=== PATIENT | female | born 1990 | race Caucasian/White ===

== ENCOUNTER 2021-12-21 10:12 | Outpatient (CLI) | payer BC, SELFPAY ==
--- NOTE | ~2021-12-21 | US_ITS ---
EXAMINATION: US pelvic complete w TV EXAM DATE: 12/21/2021 10:49 INDICATION: Right-sided cyst felt by TECHNIQUE: Pelvic transabdominal and transvaginal sonogram was performed. There are multiple graysca le and Doppler images available for interpretation. Comparison is made to prior examination from 11/29. FINDINGS: Uterus measures 10.6 x 6.7 x 4.6 cm, and is morphologically normal. Endometrial stripe me asures 11 mm, within normal limits. There is no free pelvic fluid. Right adnexa: The ovary measures 3.5 x 2.8 x 1.4 cm and is morphologically normal. Ovarian vascular f low confirmed. Left adnexa: The ovary measures 3.0 x 2.7 x 3.0 cm and is cyst or cystic region with a septation rafat uring 2.5 x 2.8 x 2.3 cm. Ovarian vascular flow confirmed. IMPRESSION: Small mildly complex left ovarian cyst, probably physiologic or hemorrhagic. Unremarkable right ovary. Reviewed, dictated and finalized at location B. LER HELPER IMPRESSION: Small mildly complex left ovarian cyst, probably physiologic or hem orrhagic. Unremarkable right ovary.
== END 2021-12-21 10:13 | disposition home or self-care (01) ==
LOC: ANHIMG 10:16
PROVIDERS: PCP Physician Assistant; Visit Provider Obstetrics & Gynecology
DX: N83.292 Other ovarian cyst, left side (principal)
CPT/HCPCS: 76830; 76856

== ENCOUNTER → 2021-12-25 01:55 | Outpatient (CLI) | payer BC, SELFPAY ==
[2021-12-25 11:11] LABS: SARS-CoV-2 RNA PCR Negative
== END ==
PROVIDERS: PCP Physician Assistant; Visit Provider Obstetrics & Gynecology
DX: Z01.812 Encounter for preprocedural laboratory examination (principal); Z20.822 Contact with and (suspected) exposure to COVID-19
CPT/HCPCS: C9803; U0003; U0005

== ENCOUNTER 2021-12-25 08:55 | Outpatient (CLI) | payer BC, SELFPAY | END 2021-12-25 08:56 | disposition home or self-care (01) | LOC: ANHSURGERY 08:58 | PROVIDERS: PCP Physician Assistant; Visit Provider Obstetrics & Gynecology | DX: Z01.812 Encounter for preprocedural laboratory examination (principal); N83.209 Unspecified ovarian cyst, unspecified side | CPT/HCPCS: 36415; 86850; 86900; 86901 ==

== ENCOUNTER 2021-12-28 02:30 | Day surgery (SDC) | payer BC, SELFPAY ==
[2021-12-25 08:23] VITALS: BMI 22.2
--- NOTE | 2021-12-25 08:33 | PC.NURSE ---
Report to the Outpatient Waiting Room, entrance under the green pavilion located off [facility], at time 6:15 on date 12/28/21. OR Time: 8:15. - You and your visitor will be asked a series of questions to screen for COVID 19 for your protection. - A mask is required within the hospital. One visitor will be allowed to accompany the patient into the hospital. Patients visitor will be instructed to remain with patient at all times or leave the building. We will allow the visitor to come back to the postoperative area when patient is ready. Preoperative COVID Testing Requirements: COVID TEST 12/25 AT 9:00 No COVID Test needed if: (proof is required; if not received patient will have Rapid Test prior to entry) - Patient has received COVID Vaccine at least 14 days prior to procedure date or - Patient has positive COVID test result within last 90 days of surgery date. COVID Test needed if above criteria is not met If not COVID vaccinated a COVID test must be conducted within 72 hours of surgery and patient is asked to isolate self from time of testing until procedure. You will go to the [facility] for your COVID testing. The [facility] site is located at the corner of [address] [facility]. You will only be called if COVID results are positive and your surgeon may reschedule your elective surgery date. Patients may have clear liquids (water, carbonated beverages, clear teas, apple juice) until 3 hours prior to surgery (5:15) with a maximum of 20 ounces. - No food from midnight until time of surgery Take the following medications with a SIP of water the morning of surgery: INHALER (IF NEEDED) Medications to discontinue per physician: N/A Date to take last dose: N/A Please no make-up, nail cuban, hairspray, perfume, deodorant, or body powder the day of surgery. No jewelry (including any body piercings) or valuables the day of surgery, leave them at home. Please take a shower or bath the night before, or the morning of, surgery with an antibacterial soap. Wear comfortable, loose fitting clothing. - Jewelry must be removed prior to entering the operating room. Rings and piercings that are not removed may be cut off. - The hospital will not accept responsibility for valuables. - Please leave all valuables, including medications, at home the day of surgery. If you are going home after surgery, a licensed sprinkling truck driver must drive you home. - NO public transportation without another adult. - We recommend that an adult stay with you for 24 hours following discharge. - We also recommend that you do not drive, make important decision, drink alcoholic beverages, or take any drugs that were not prescribed by your health care provider for at least 24 hours after your discharge time. Follow any additional instructions given to you from your surgeon. Telephone instructions given to KWABENA WILDER and asked if any additional questions and then verbalized understanding. Patient advised to call surgeon office or pre surgery nurse liaison [phone] if any additional questions.
--- NOTE | 2021-12-27 07:45 | P.HP_ITS ---
H&P: HPI History of Present Illness Date/Time: 0 31-year-old admitted for laparoscopy left cystectomy and pos sible left salpingo-oophorectomy. Patient has pain discomfort and dyspareunia scan ultrasound shows a left-sided ovarian cyst she has a very benign appearance. She has a history of endometriosis. Risks and benefits reviewed in great detail. She received the ACOG handout entitled laparoscopy. She had all questions answered and asked to proceed12/27/21 07:45 Chief Complaint: pelvic pain and left ovarian cyst Review of Systems Review of Systems: All systems reviewed & are unremarkable except as noted in HPI and below PMFSH Past Medical History Medical History Asthma Endometriosis Surgical History Surgical History H/O hernia repair History of cholecystectomy Family History Family History Father Hypertension Mother Hypertension Family history of autoimmune disorder Other Family history of allergic disorder Social History Social History Smoking status: Never smoker Alcohol intake: current Alcohol use details: COUPLE/MONTH Substance use: never Substance use type: does not use Spiritual care concerns: No Meds Home Medications and Allergies Home Medications Medication Instructions Recorded Confirmed Type albuterol sulfate 90 mcg/actuation 1 puff INHALATION Q4H PRN 11/17/19 12/25/21 History aerosol inhaler sertraline 50 mg PO HS 12/25/21 12/25/21 History Allergies Allergy/AdvReac Type Severity Reaction Status Date / Time aspirin Allergy Unknown Other Verified 12/25/21 08:22 Penicillins Allergy Unknown Hives Verified 12/25/21 08:22 Exam Const: General: no acute distress Eyes: General: appearance normal, both eyes and all related structures Neck: Neck: supple and no JVD Thyroid: thyroid normal Resp: Effort & Inspection: normal respiratory effort Auscultation: clear to auscultation bilaterally Cardio: Rate: regular rate Rhythm: regular rhythm GI: Inspection: non-distended GI Palp: Yes Soft to palpation, No Tenderness to palpation present (GI) and No Guarding due to palpation present (GI) Auscultation: normal bowel sounds Skin: General skin exam: no rashes or lesions noted Extrem: General: normal to inspection and no edema Psych: Mental Status: mental status grossly normal Affect: normal affect Assessment and Plan Additional Plan impression: Pelvic pain and left ovarian cyst Plan: Laparoscopy with left cystectomy possible left salpingo-oophorectomy
--- NOTE | 2021-12-27 12:58 | P.PNAN_ITS ---
Anes - Initial Pre Proc Eval Procedure: Operation Date: 12/28/21 08:15 Proposed Procedures p Diagnostic Laparoscopy, Possible Left Ovarian Cystectomy - Teodoro Lamar MD Date/Time: 12/27/21 12:58 Surgeon: Teodoro Lamar MD Pre Op Diagnosis: pain left ovarian cyst Patient Data Age: 31 Gender: F Height: 1.7 m Weight: 64.41 kg Allergies Allergy/AdvReac Type Severity Reaction Status Date / Time aspirin Allergy Unknown Other Verified 12/28/21 06:47 Penicillins Allergy Unknown Hives Verified 12/28/21 06:47 Home Medications Medication Instructions Recorded Confirmed Type albuterol sulfate 90 mcg/actuation 1 puff INHALATION Q4H PRN 11/17/19 12/28/21 History aerosol inhaler sertraline 50 mg PO HS 12/25/21 12/28/21 History hydrocodone-acetaminophen 1 tablet PO Q4H PRN #30 tablet 12/28/21 Rx Patient hx anesthesia problems: none Family hx anesthesia problems: none Results Review: All pre-operative results and documents have been reviewed as part of the pre-operative evaluation. [facility] Past Medical History Medical History Asthma Endometriosis Surgical History Surgical History H/O hernia repair History of cholecystectomy Family History Family History Father Hypertension Mother Hypertension Family history of autoimmune disorder Other Family history of allergic disorder Social History Social History Smoking status: Never smoker Alcohol intake: current Alcohol use details: COUPLE/MONTH Substance use: never Substance use type: does not use Living arrangements: with family Spiritual care concerns: No Anes - Eval Final PreProcedure Day of Procedure 12/27/21 12:58 Patient weight: normal Heart: regular rate and rhythm Lungs: clear to auscultation and normal air movement Airway: Mallampati scale class II Neurological: alert and oriented Last oral intake: >/= 8 hours ASA classification: II Emergent: no Anesthetic plan: proceed Anesthesia type and monitoring: general ETT and standard monitoring Results Review: All pre-operative results and documents have been reviewed as part of the pre-operative evaluation. Informed Consent: The patient's anesthetic plan and its attendant risks and benefits were discussed with the patient/family/POA. Questions were solicited and answers provided to the satisfaction of the patient/family/POA.
[2021-12-28] VITALS (7 sets, daily range): BP systolic 98–123; BP diastolic 44–109; PULSE 65–85; RESP 13–16; TEMP 36.3–36.8; O2SAT 100
--- NOTE | 2021-12-28 06:55 | WPDHPUPDATE1 ---
History and Physical Update Update Date/Time: 12/28/21 06:55 History and Physical has been reviewed, including an updated exam of the patient. There are NO changes in the patient's condition. Risks, benefits, and alternatives have been discussed and questions answered. Patient agrees to proceed with procedure.
[2021-12-28] MEDS: ACETAMINOPHEN 500 MG TABLET 1000 MG PO (07:22)
[2021-12-28] MEDS: SCOPOLAMINE 1.5 MG PATCH TRANSDERM (07:23)
[2021-12-28] MEDS: LACTATED RINGERS 1,000 ML 30 ML IV CONT (07:32)
[2021-12-28] MEDS: KETOROLAC 15 MG/ML VIAL (*BKC) IV PUSH (07:34)
--- NOTE | 2021-12-28 08:43 | W.PM.PROC2 ---
Procedure Note - Detailed Date of Procedure 12/28/21 Pre-op Diagnosis pain left ovarian cyst Post-op Diagnosis Other (Endometriosis) Procedure Performed laparoscopic destruction of left ovarian cyst. Laparoscopic destruction of endometriosis Surgeon Teodoro Lamar MD Anesthesia General Indications since 31-year-old female with pelvic pain and left ovarian cyst Findings simple appearing benign left ovarian cyst. Normal-appearing uterus. Blistered endometriosis along the right uterosacral ligament. The appendix was hidden and some scar tissue but it was freed easily with blunt dissection. The gallbladder appeared to be surgically absent Description of Procedure the patient was prepped draped in the normal sterile fashion placed in the dorsal lithotomy position. Under excellent general trach anesthesia weighted speculum placed in posterior fornix vagina. Anterior lip of the cervix grasped with a single-tooth tenaculum. The Ramirez's cannula was inserted the cervix and attached to the single-tooth to be used later for uterine manipulation. After emptying the bladder of clear urine. The weighted speculum was removed. Gloves were changed An infraumbilical incision made in the Veress needle passed in the abdomen. Abdomen filled with CO2 gas [id number]. The 5mm trocar advanced under direct visualization with the [employer] assuring no injury. Patient was placed in Trendelenburg and a suprapubic incision made. The 5mm trocar was advanced into the suprapubic area under direct visualization assuring no injury. [id number] of serosanguineous fluid was seen in the cul-de-sac and this was removed and then irrigated. Small areas of endometriosis and blistered formed were seen along the right uterosacral ligament and these were cauterized at 35 w per 2nd. Simple appearing benign ovarian cysts were seen on the left and these were opened in linear fashion draining clear fluid irrigation was undertaken again. The right ovary appeared within normal limits. The appendix was covered in adhesions and using blunt dissection this was easily exposed and photo documentation undertaken. The gallbladder appeared to be surgically absent. Irrigation was undertaken in the pelvis until clear. The lower site removed. The gas removed from the abdomen the incisions closed with 4 Monocryl and glue. The instruments removed from the vagina and the patient awakened. All sponge, needle, instrument counts were correct. Were no immediate complications Estimated Blood Loss 5 Drains No Packing No Pathology None sent Complications No immediate complications Condition Stable Disposition PACU
[2021-12-28] MEDS: oxyCODONE HCL (*CRX) 5 MG TAB IR PO (10:04)
== END 2021-12-28 10:40 | disposition home or self-care (01) ==
PROVIDERS: PCP Physician Assistant; Visit Provider Obstetrics & Gynecology
PROC: (CPT 49320; principal; 2021-12-28 08:15)
DX: N83.202 Unspecified ovarian cyst, left side (principal); N80.3 Endometriosis of pelvic peritoneum; R10.2 Pelvic and perineal pain; N73.6 Female pelvic peritoneal adhesions (postinfective); J45.909 Unspecified asthma, uncomplicated; Z79.51 Long term (current) use of inhaled steroids
CPT/HCPCS: 58662; A9270; J0330; J1100; J1200; J1885; J2250; J2405; J2704; J3010; J7120

== ENCOUNTER 2022-12-09 13:05 | Outpatient (CLI) | payer OTHER, SELFPAY ==
--- NOTE | ~2022-12-09 | MMUS_ITS ---
EXAMINATION: MM diagnostic wei RT w ekta, US breast RT limited HISTORY: Upper outer quadrant right breast lump TECHNIQUE: ML, MLO and CC 3-D tomosynthesis images of right breast were performed and synthetic 2-D i mages were generated. CAD analysis was submitted and interpreted. High resolution upper outer quadran t right breast ultrasound was performed. COMPARISON: None BREAST PARENCHYMAL COMPOSITION: There are scattered areas of fibroglandular density. FINDINGS: MAMMOGRAPHIC FINDINGS: No suspicious mass or architectural distortion, malignant calcification, skin thickening or retractio n is detected. ULTRASOUND: No suspicious mass, shadowing, cyst or other significant sonographic abnormality is detected in the u pper outer quadrant of the right breast. IMPRESSION: 1. No mammographic evidence malignancy 2. Routine annual mammographic screening beginning at age 40 is recommended BI-RADS Category 1: Negative Reviewed, dictated and finalized at location A. UNT UNDERWRITER IMPRESSION: 1. No mammographic evidence malignancy 2. Routine annual mammographic screening beginning at age 40 is recommended BI-RADS Category 1: Negative
== END 2022-12-09 13:06 | disposition home or self-care (01) ==
PROVIDERS: PCP Physician Assistant; Visit Provider Obstetrics & Gynecology
DX: N63.10 Unspecified lump in the right breast, unspecified quadrant (principal)
CPT/HCPCS: 76642; 77061; 77065; G0279

== ENCOUNTER 2023-04-21 11:54 | Outpatient (CLI) | payer OTHER, SELFPAY ==
[2023-04-21 12:45] LABS: Basophils Absolute Auto 0.1 K/mm3 (0.0-0.1); Basophils Percent Auto 1.7 % (0.2-1.2); Eosinophils Absolute Auto 0.1 K/mm3 (0-0.3); Eosinophils Percent Auto 1.5 % (0-4.4); Hematocrit 39.3 % (37.0-47.0); Hemoglobin 13.3 g/dL (12.0-15.0); Immature Granulocyte Absolute 0.01 K/mm3 (0.00-0.031); Immature Granulocyte Percent A 0.2 % (0-0.5); Lymphocytes Absolute Auto 2.05 K/mm3 (0.9-3.2); Lymphocytes Percent Auto 37.7 % (18.3-44.2); Mean Corpuscular HGB Conc 33.8 g/dl (32-36); Mean Corpuscular Hemoglobin 30.5 pg (26-34); Mean Corpuscular Volume 90.1 fl (80-100); Mean Platelet Volume 10.5 fl (7.4-10.4); Monocytes Absolute Auto 0.3 K/mm3 (0.1-0.6); Monocytes Percent Auto 6.3 % (2.6-8.5); Neutrophils Absolute Auto 2.9 K/mm3 (1.3-6.7); Neutrophils Percent Auto 52.6 % (45.5-73.1); Platelet Count Result 300 k/mm3 (150-375); Red Blood Count 4.36 M/mm3 (4.2-5.4); White Blood Count 5.4 K/mm3 (4.5-10.0)
== END 2023-04-21 11:55 | disposition home or self-care (01) ==
PROVIDERS: PCP Nurse Practitioner Family; Visit Provider Obstetrics & Gynecology
DX: R10.2 Pelvic and perineal pain (principal); Z01.818 Encounter for other preprocedural examination
CPT/HCPCS: 36415; 85025; 86850; 86900; 86901

== ENCOUNTER 2023-04-25 00:56 | Day surgery (SDC) | payer OTHER, SELFPAY ==
[2023-04-16 13:36] VITALS: BMI 23.5
--- NOTE | 2023-04-16 13:37 | PC.NURSE ---
Report to the Outpatient Waiting Room, entrance under the green pavilion located off [facility], at 1130 on 04-25-23. Planned Procedure Time: 1330. Time changes happen often and if your time is changed the preop area will call you the afternoon before. - You and your visitor will be asked to self-screen and do not enter if you have any COVID symptoms. - A mask is optional within the hospital at this time. Patients may have clear liquids (water, carbonated beverages, clear teas, apple juice) until 3 hours prior to surgery with a maximum of 20 ounces. 1030 - No food from midnight until time of surgery - Infants may have breast milk until 4 hours before surgery, infant formula 6 hours prior to surgery. - Children will be allowed to drink immediately following surgery. If applicable, please bring a bottle or sippy cup to assist with drinking. Juice, water, soda, and popsicles are readily available. For infants on formula, please bring formula the day of surgery. Pacifiers are allowed. Take the following medications with a SIP of water the morning of surgery: None Bring inhaler day of surgery with you to the hospital. DO NOT STOP ANY OF YOUR OTHER PRESCRIPTION MEDICATIONS PRIOR TO SURGERY ?EXCEPT THE FOLLOWING Medications to discontinue per physician: Ibuprofen Date to take last dose: Per Dr. Marbin Hope Please no make-up, nail irish, hairspray, perfume, deodorant, or body powder the day of surgery. No jewelry (including any body piercings) or valuables the day of surgery, leave them at home. Please take a shower or bath the night before, or the morning of, surgery with an antibacterial soap. Wear comfortable, loose fitting clothing. Children are encouraged to wear pajamas. - Jewelry must be removed prior to entering the operating room. Rings and piercings that are not removed may be cut off. - The hospital will not accept responsibility for valuables. - Please leave all valuables, including medications, at home the day of surgery. If you are going home after surgery, a licensed car driver must drive you home. - NO public transportation without another adult if you receive anesthesia. - We recommend that an adult stay with you for 24 hours following discharge. - We also recommend that you do not drive, make important decision, drink alcoholic beverages, or take any drugs that were not prescribed by your health care provider for at least 24 hours after your discharge time. For Pediatric surgeries, we recommend two adults accompany the child home. Follow any additional instructions given to you from your surgeon. If you or anyone in your household have experienced Covid symptoms in the past week, please notify your surgeon or the nurse liaison at the phone number below for possible testing. Telephone instructions given to Lonnie Munson and asked if any additional questions and then verbalized understanding. Patient advised to call surgeon office or pre surgery nurse liaison [phone] if any additional questions.
--- NOTE | 2023-04-21 11:51 | PM.IMHP ---
H&P: HPI History of Present Illness Date/Time: 04/21/23 11:51 Chief Complaint: Uterine prolapse/pelvic pain/adenomyosis Narrative: This 32-year-old multiparous female admitted for robotic hysterectomy and bilateral salpingectomy secondary to uterine prolapse and pain. Risks and benefits reviewed including but not exclusive of , aspiration, bleeding, transfusion, perforation injury to bowel, bladder, ureters, or other internal organs with need for laparotomy. She received the ACOG handout entitled hysterectomy as well as the Kim handout. She had all questions answered. She asked to proceed PMFSH Past Medical History Medical History Asthma Endometriosis Surgical History Surgical History H/O hernia repair History of cholecystectomy Family History Family History Father Hypertension Mother Hypertension Family history of autoimmune disorder Other Family history of allergic disorder Social History Social History Smoking status: Never smoker Second hand tobacco smoke exposure: No Alcohol intake: current Alcohol use details: very rarely Substance use: never Substance use type: does not use Living arrangements: with family Spiritual care concerns: No Meds Home Medications and Allergies Home Medications Medication Instructions Recorded Confirmed Type albuterol sulfate 90 mcg/actuation 1 puff inhalation Q4H PRN 11/17/19 04/16/23 History aerosol inhaler (Ventolin HFA) Bronchospasm ibuprofen 200 mg tablet 400 mg PO Q6H PRN pain 04/16/23 04/16/23 History Allergies Allergy/AdvReac Type Severity Reaction Status Date / Time Penicillins Allergy Intermediate Hives Verified 04/16/23 13:05 aspirin Allergy Unknown Other Verified 12/28/21 06:47 Exam Const: General: cooperative, healthy appearing and comfortable Nutritional Appearance: average body habitus Orientation/consciousness: oriented to person, oriented to place and oriented to time HENMT: Head: normal to inspection Resp: Effort & Inspection: normal respiratory effort Cardio: Rate: regular rate Rhythm: regular rhythm Heart sounds: S1 normal heart sound present and S2 normal heart sound present GI: Inspection: normal to inspection : External Female Exam: normal external appearance Speculum Exam - Vagina: normal appearance of the vagina Speculum Exam - Cervix: normal appearance of the cervix (Second-degree prolapse present) Bimanual exam- vagina & uterus: enlarged Bimanual Exam- Adnexa, other: normal adnexae Assessment and Plan Assessment and plan (1) Uterine prolapse: Code(s): N81.4 - Uterovaginal prolapse, unspecified Status: Acute Plan Robotic total vaginal hysterectomy and bilateral salpingectomy
--- NOTE | 2023-04-24 13:00 | P.PNAN_ITS ---
Anes - Initial Pre Proc Eval Procedure: Operation Date: 04/25/23 13:30 Proposed Procedures p Robotic Assisted Total Vaginal Hysterectomy with Bilateral Salpingectomy - Teodoro Hope MD Date/Time: 04/24/23 13:00 Surgeon: Teodoro Hope MD Pre Op Diagnosis: pelvic pain, uterine prolapse, adenomyosis Patient Data Age: 32 Gender: F Height: 1.7 m Weight: 68.04 kg Allergies Allergy/AdvReac Type Severity Reaction Status Date / Time Penicillins Allergy Intermediate Hives Verified 04/25/23 12:01 aspirin Allergy Unknown Other Verified 04/25/23 12:01 Home Medications Medication Instructions Recorded Confirmed Type albuterol sulfate 90 mcg/actuation 1 puff inhalation Q4H PRN 11/17/19 04/16/23 History aerosol inhaler (Ventolin HFA) Bronchospasm ibuprofen 200 mg tablet 400 mg PO Q6H PRN pain 04/16/23 04/25/23 History hydrocodone 5 mg-acetaminophen 325 1 tablet PO Q4H PRN pain #30 tabs 04/25/23 Rx mg tablet Patient hx anesthesia problems: none Family hx anesthesia problems: none Results Review: All pre-operative results and documents have been reviewed as part of the pre- operative evaluation. [facility] Past Medical History Medical History (Updated 04/24/23 @ 13:01 by Mick Prajapati MD) Asthma Endometriosis Hyperlipidemia Uterine prolapse Surgical History Surgical History H/O hernia repair History of cholecystectomy Family History Family History Father Hypertension Mother Hypertension Family history of autoimmune disorder Other Family history of allergic disorder Social History Social History Smoking status: Never smoker Second hand tobacco smoke exposure: No Alcohol intake: current Alcohol use details: very rarely Substance use: never Substance use type: does not use Living arrangements: with family Spiritual care concerns: No Anes - Eval Final PreProcedure Day of Procedure 04/24/23 13:00 Patient weight: normal Heart: regular rate and rhythm Lungs: clear to auscultation and normal air movement Airway: Mallampati scale class II Neurological: alert and oriented Last oral intake: >/= 8 hours ASA classification: II Emergent: no Anesthetic plan: proceed Anesthesia type and monitoring: general ETT and standard monitoring Results Review: All pre-operative results and documents have been reviewed as part of the pre- operative evaluation. Informed Consent: The patient's anesthetic plan and its attendant risks and benefits were discussed with the patient/family/POA. Questions were solicited and answers provided to the satisfaction of the patient/family/POA.
[2023-04-25] VITALS (9 sets, daily range): BP systolic 102–129; BP diastolic 57–94; PULSE 56–87; RESP 12–18; TEMP 36.1–36.9; O2SAT 98–100
--- NOTE | 2023-04-25 06:30 | WPDHPUPDATE1 ---
History and Physical Update Update Date/Time: 04/25/23 06:30 History and Physical has been reviewed, including an updated exam of the patient. There are NO changes in the patient's condition. Risks, benefits, and alternatives have been discussed and questions answered. Patient agrees to proceed with procedure.
[2023-04-25] MEDS: ACETAMINOPHEN 500 MG TABLET 1000 MG PO (11:54)
[2023-04-25] MEDS: LACTATED RINGERS 1,000 ML 30 ML IV CONT ×2 (11:54→14:10)
[2023-04-25] MEDS: KETOROLAC 15 MG/ML VIAL (*BKC) IV PUSH (11:55)
[2023-04-25] MEDS: ceFAZolin 2 GM/D5W 50 ML 2 GM/50 ML BAG IVPB (12:44)
--- NOTE | 2023-04-25 13:55 | P.OP_ITS ---
Procedure Note - Detailed Date of Procedure 04/25/23 Pre-op Diagnosis pelvic pain, uterine prolapse, adenomyosis Post-op Diagnosis Same Procedure Performed Robotic total hysterectomy bilateral salpingectomy Surgeon Teodoro Hope MD Anesthesia General Indications se a 32-year-old female with uterus pelvic pain and bleeding Findings enlarged uterus Normal-appearing ovaries and tubes Description of Procedure patient was prepped draped sterile fashion placed in the dorsal lithotomy position. Excellent general anesthesia weighted speculum placed in posterior fornix of vagina. Anterior lip of the cervix grasped with a single-tooth tenaculum. Uterus sounded to 10cm. Serial dilatation with fragmented dilators performed followed by passage of the 10. MERA and the 3. Cold cup. Next the 16 [place] catheter was placed in the bladder and the single-tooth was removed along with the weighted speculum. The gloves were changed. A supraumbilical incision made the Veress needle passed in the abdomen. Abdomen filled with CO2 gas [id number]. 8Mm trocar advanced our abdomen downside visualized no injury seen. Patient placed in Trendelenburg and 19? and right left lateral quadrant incisions made. 8Mm trocars advanced under direct visualization assuring no injury a right upper quadrant incision made. The 8mm trocar advanced under direct visualization assuring no injury the robot was docked. Attention was turned to the console. The left round ligament was grasped, burned, cut. Anterior bladder flap was formed by sharply dissecting the peritoneum and reflecting the bladder caudally away from the cervix uterus the opposite round ligament which was clamped, burned, cut. Next the left fallopian tube was sharply dissected away from the ovarian complex with monopolar cautery and left attached at its uterine origin. This was repeated with the right fallopian tube. The left utero-ovarian ligament was skeletonized conserving the left ovary clamping burning cutting and bringing this to level of previously cut round ligament. In like fashion uterine ligament on the right was skeletonized clamping burning cutting and freeing this level previously cut ligament conserving right ovary. Cardinal broad ligaments on the left were skeletonized clamping burning cutting a brace on the lateral edge of the uterus. Was marked amount of tortuous large blood vessels noted in these were ind ividually clamped,. The cardinal broad ligaments on the right were skeletonized clamping burning cutting a hugging the cervix and uterus until the uterine vessels could be seen on the right. These were individually clamped, burned, cut. Blanching the uterus was noted. Colpotomy incision made the cervix uterus and tubes removed through the vagina. Vagina then closed with continuous running 0V lock from lateral edge to lateral edge back to the midline. Irrigation undertaken to clear and [place] term placed over this raw surface area. Blood loss estimated at25cc. The robot was undocked. The gas removed from the abdomen. The trocars removed the incisions closed with 4 Monocryl and glue. Patient was awakened went to recovery in satisfactory condition. All sponge, needle, instrument counts were correct. There were no immediate complications noted Estimated Blood Loss 25 Drains No Packing No Pathology Yes Complications No immediate complications Condition Stable Disposition PACU
--- NOTE | 2023-04-25 14:00 | PM.DS ---
DS: Admitting Diagnosis Discharge Date 04/26/2023 Admitting Diagnosis uterine prolapse /pelvic pain DS: Discharge Diagnosis Discharge Diagnosis (1) Uterine prolapse: Code(s): N81.4 - Uterovaginal prolapse, unspecified Status: Acute DS: Summary Hospital Course Reason for hospitalization: patient was admitted for robotic total vaginal hysterectomy and bilateral salpingectomy Hospital Course: Lonnie underwent a robotic total vaginal hysterectomy bilateral salpingo on 04/25 23. Procedure was relatively unremarkable. Her hospital course unremarkable. She remained afebrile. She was up, voiding without difficulty, ambulating, eating regular diet, generally without complaints. Time Spent with Patient Time attestation: Total time spent providing and/or coordinating discharge services: Exam Const: General: cooperative, healthy appearing and comfortable Orientation/consciousness: oriented to person, oriented to place and oriented to time HENMT: Head: normal to inspection Resp: Effort & Inspection: normal respiratory effort Cardio: Rate: regular rate Rhythm: regular rhythm Heart sounds: S1 normal heart sound present and S2 normal heart sound present GI: Inspection: normal to inspection and incision ( Wounds are clean dry and intact) DS: Data Data Completed and Pending Pending studies at discharge: Pending at discharge 04/25/23 13:05 Surgical [PTH] Routine Discharge Plan Discharge Patient Disposition: Home, Self-Care Stand Alone Forms: General Discharge Instructions Follow-up/Referrals: Teodoro Rich MD [Physician] - Discharge Medications: New hydrocodone-acetaminophen 5-325 mg tablet 1 tablet PO Q4H PRN (Reason: pain) Qty: 30 0RF No Action albuterol sulfate [Ventolin HFA] 90 mcg/actuation HFA aerosol inhaler 1 puff INHALATION Q4H PRN (Reason: Bronchospasm) ibuprofen 200 mg Tablet 400 mg PO Q6H PRN (Reason: pain)
[2023-04-25] MEDS: fentaNYL CITRATE INJ (*CRX) 100 MCG/2 ML VIAL 25 MCG IV PUSH ×4 (14:20→14:56)
[2023-04-25] MEDS: KETOROLAC 30 MG/ML VIAL (*BKC) IV PUSH (15:50)
[2023-04-25] MEDS: DEXTROSE 5%/LACTATED RINGERS 1,000 ML 125 ML IV CONT (15:51)
[2023-04-25] MEDS: HYDROcodone/acetaminophen (*CRX) 5-325 MG TABLET 1 TAB PO ×2 (15:56→16:53)
[2023-04-25] MEDS: ONDANSETRON INJ 4 MG/2 ML VIAL IV PUSH (15:56)
--- NOTE | 2023-04-25 18:51 | PC.NURSE ---
Addendum entered by Anthony White RN 04/25/23 18:53: actual time of admission to unit was 1518 Original Note: Pt arrived [facility] unit via bed accompanied by spouse and was taken to room 284. PT introductions made and plan of care discussed per post op fur remodeler surgery , pain management, daily care activities. PT and spouse both recipients of such instructions and no barriers to learning identified at this time. PT oriented to room and board and surrounding area. PT received such instructions this shift via one to one discussion and demonstrations. PT verbalized understanding of such care.
[2023-04-25] MEDS: HYDROcodone/acetaminophen (*CRX) 10-325 MG TABLET 1 TAB PO (20:33)
[2023-04-26 04:30] VITALS: BP 94/55; PULSE 63; RESP 16; TEMP 36.7; O2SAT 97
[2023-04-26 04:45] LABS: Basophils Absolute Auto 0.1 K/mm3 (0.0-0.1); Basophils Percent Auto 0.5 % (0.2-1.2); Eosinophils Absolute Auto 0.1 K/mm3 (0-0.3); Eosinophils Percent Auto 0.6 % (0-4.4); Hemoglobin 11.2 g/dL (12.0-15.0); Immature Granulocyte Absolute 0.04 K/mm3 (0.00-0.031); Immature Granulocyte Percent A 0.4 % (0-0.5); Lymphocytes Absolute Auto 1.92 K/mm3 (0.9-3.2); Lymphocytes Percent Auto 17.6 % (18.3-44.2); Mean Corpuscular HGB Conc 33.9 g/dl (32-36); Mean Corpuscular Hemoglobin 30.5 pg (26-34); Mean Corpuscular Volume 89.9 fl (80-100); Mean Platelet Volume 10.6 fl (7.4-10.4); Monocytes Absolute Auto 0.6 K/mm3 (0.1-0.6); Monocytes Percent Auto 5.7 % (2.6-8.5); Neutrophils Absolute Auto 8.2 K/mm3 (1.3-6.7); Neutrophils Percent Auto 75.2 % (45.5-73.1); Platelet Count Result 250 k/mm3 (150-375); Red Blood Count 3.67 M/mm3 (4.2-5.4); Red Cell Distribution Width 12.1 % (11.5-14.5); White Blood Count 10.9 K/mm3 (4.5-10.0)
--- NOTE | 2023-04-26 06:58 | P.PNAN_ITS ---
Anes - Prog Note Post-Op Date/Time: 04/26/23 06:58 Cardiovascular status: normal Respiratory status: normal Airway patency: baseline Mental status: baseline Post-Op hydration status: normal Vital Signs: Last Vital Signs Temp 36.7 C 04/26/23 04:30 Pulse 63 04/26/23 04:30 Resp 16 04/26/23 04:30 BP 94/55 L 04/26/23 04:30 Pulse Ox 97 04/26/23 04:30 O2 Del Method Room Air 04/25/23 15:18 O2 Flow Rate 8 04/25/23 14:25 Pain Score (VAS): 1 I/O: Intake & Output 04/25/23 04/25/23 04/26/23 15:59 23:59 07:59 Intake Total 450 1040 500 Output Total 120 750 Balance 330 290 500 Laboratory Tests 04/26/23 04:14 04/26/23 04:14 WBC 10.9 H RBC 3.67 L Hgb 11.2 L Hct 33.0 L MCV 89.9 MCH 30.5 MCHC 33.9 RDW 12.1 Plt Count 250 MPV 10.6 H Immature Gran % (Auto) 0.4 Neut % (Auto) 75.2 H Lymph % (Auto) 17.6 L [place] % (Auto) 5.7 Eos % (Auto) 0.6 Baso % (Auto) 0.5 Lymph # (Auto) 1.92 [place] # (Auto) 0.6 Eos # (Auto) 0.1 Baso # (Auto) 0.1 Abs Immat Gran (auto) 0.04 H Absolute Neuts (auto) 8.2 H Absolute Nucleated RBC 0.0 Nucleated RBC % 0.0 Post-procedural complaints: none Patient Feedback: Patient satisfied with anesthetic care.
--- NOTE | 2023-04-26 07:13 | PM.GYNPNOP ---
[employer] - A/P Postoperative Procedures: Procedures Operation Date: 04/25/23 13:30 Actual Procedure Side Surgeon p Robotic Assisted Total Vaginal Hysterectomy with Bilateral Salpingectomy Bilateral Teodoro Hope MD Postoperative status: doing well Postoperative plan: routine post-op care, see orders and discharge Time Spent With Patient Time: Total time spent is greater than 50% in coordination of care (as documented) at patient's floor/unit and/or counseling patient: Time with patient: less than 15 minutes [employer]- PN:Subj Post-Op Subjective Date/time seen: 04/26/23 07:13 Subjective: patient has no complaints, patient desires discharge, pain is well controlled and patient is tolerating oral intake Exam Const: General: cooperative, healthy appearing and comfortable Nutritional Appearance: average body habitus Orientation/consciousness: oriented to person, oriented to place and oriented to time Resp: Effort & Inspection: normal respiratory effort Cardio: Rate: regular rate Rhythm: regular rhythm Heart sounds: S1 normal heart sound present and S2 normal heart sound present GI: Inspection: normal to inspection and incision ( wound clean dry and intact) [employer] - PN: Obj Data Vital Signs Vital Signs: Vital Signs - 24 hr 04/25/23 11:33 04/25/23 14:10 04/25/23 14:25 Temperature 97.0 F L 97.3 F L Pulse Rate 71 87 57 L Respiratory Rate 18 18 14 Blood Pressure 107/58 L 129/94 H 111/67 Pulse Oximetry 100 100 100 Oxygen Delivery Room Air Simple Face Mask Simple Face Mask Oxygen Flow Rate 8 8 04/25/23 14:31 04/25/23 14:40 04/25/23 14:55 Temperature Pulse Rate 60 56 L Respiratory Rate 12 12 Blood Pressure 113/71 112/69 Pulse Oximetry 99 98 Oxygen Delivery Room Air Room Air Room Air Oxygen Flow Rate 04/25/23 15:10 04/25/23 15:41 04/25/23 15:18 Temperature 98.2 F Pulse Rate 69 62 62 Respiratory Rate 12 18 18 Blood Pressure 108/68 102/63 Pulse Oximetry 98 98 98 Oxygen Delivery Room Air Room Air Oxygen Flow Rate 04/25/23 20:00 04/26/23 04:30 Temperature 98.4 F 98.1 F Pulse Rate 71 63 Respiratory Rate 16 16 Blood Pressure 103/57 L 94/55 L Pulse Oximetry 98 97 Oxygen Delivery Oxygen Flow Rate Intake/Output Intake/Output: Intake & Output 04/23/23 04/24/23 04/25/23 04/26/23 23:59 23:59 23:59 23:59 Intake Total 1490 500 Output Total 870 Balance 620 500 Meds/Results Medications: Active Medications Generic Name Dose Route Start Last Admin Trade Name Freq PRN Reason Stop Dose Admin Hydrocodone Bitart/Acetaminophen 1 tab 04/25/23 15:11 04/25/23 20:33 Hydrocodone/Acetaminophen (*Crx) 10-325 Mg Tablet PO 1 tab Q3H PRN Administration Pain Rated 6 or Greater Hydrocodone Bitart/Acetaminophen 1 tab 04/25/23 15:11 04/25/23 16:53 Hydrocodone/Acetaminophen (*Crx) 5-325 Mg Tablet PO 1 tab Q3H PRN Administration Pain Rated 5 or Less Docusate Sodium 100 mg 04/25/23 17:00 04/25/23 19:01 Docusate Sodium 100 Mg Capsule PO Not Given BID SHEKHAR Enoxaparin Sodium 40 mg 04/26/23 09:00 Enoxaparin 40 Mg/0.4 Ml Syringe SUB-Q DAILY SHEKHAR Dextrose/Lactated Ringer's 1,000 mls @ 125 mls/hr 04/25/23 15:11 04/25/23 15:51 Dextrose 5%/Lactated Ringers IV CONT 125 mls/hr .Q8H SHEKHAR Administration Ibuprofen 600 mg 04/25/23 15:11 Ibuprofen 600 Mg Tablet PO Q6H PRN Cramping Ketorolac Tromethamine 30 mg 04/25/23 15:11 04/25/23 15:50 Ketorolac 30 Mg/Ml Vial (*Bkc) IV PUSH 04/30/23 15:10 30 mg Q6H PRN Administration Pain Rated 4-6 Naloxone HCl 0.1 mg 04/25/23 15:11 Naloxone Hcl 0.4 Mg/Ml Vial IV PUSH Q2M PRN Respiratory rate less than 10 Ondansetron HCl 4 mg 04/25/23 15:11 04/25/23 15:56 Ondansetron Inj 4 Mg/2 Ml Vial IV PUSH 4 mg Q6H PRN Administration Nausea And Vomiting Simethicone 80 mg 04/25/23 15:11 Simethicone 80 Mg Tab.Chew PO Q2H PRN Gas
[2023-04-26 07:40] VITALS: BP 92/57; PULSE 71; RESP 16; TEMP 36.8; O2SAT 99
[2023-04-26] MEDS: IBUPROFEN 600 MG TABLET PO (07:47)
[2023-04-26] MEDS: DOCUSATE SODIUM 100 MG CAPSULE PO (09:25)
[2023-04-26] MEDS: ENOXAPARIN 40 MG/0.4 ML SYRINGE SUB-Q (09:25)
== END 2023-04-26 09:57 | disposition home or self-care (01) ==
LOC: ANHSURGERY 11:22 → ANHOB2 15:16
PROVIDERS: PCP Nurse Practitioner Family; Visit Provider Obstetrics & Gynecology
PROC: (CPT 58571; principal; 2023-04-25 13:30)
DX: N81.4 Uterovaginal prolapse, unspecified (principal); R10.2 Pelvic and perineal pain; N72 Inflammatory disease of cervix uteri; N83.8 Other noninflammatory disorders of ovary, fallopian tube and broad ligament; Z79.51 Long term (current) use of inhaled steroids; J45.909 Unspecified asthma, uncomplicated
CPT/HCPCS: 58571; S2900; 36415; 85025; 86850; 86900; 86901; 88307; 99199; A9270; J0690; J1100; J1650; J1885; J2250; J2405; J2704; J3010; J7030; J7120; J7121

== ENCOUNTER 2023-07-13 11:25 | Emergency (ER) | payer OTHER, SELFPAY ==
--- NOTE | 2023-07-13 12:26 | ED.GENADULT ---
HPI - General Adult General Chief complaint: Upper Respiratory Infection Stated complaint: Sore Throat,Bilateral Ear Irritation,Congestion Time Seen by Provider: 07/13/23 12:26 Source: patient Mode of arrival: ambulatory Limitations: no limitations History of Present Illness HPI narrative: 33-year-old female patient presents to the [facility] with complaints of a sore throat for the past week. Patient states symptoms have gotten worse and has been waking up with no voice for the last couple of days. 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 Denies any fevers, body aches or chills. Patient is complaining of a headache but denies any abdominal pain, nausea, vomiting or diarrhea. Denies chest pain or shortness of breath. Related Data Home Medications Medication Instructions Recorded Confirmed albuterol sulfate 90 mcg/actuation 1 puff inhalation Q4H PRN 11/17/19 07/13/23 aerosol inhaler (Ventolin HFA) Bronchospasm Allergies Allergy/AdvReac Type Severity Reaction Status Date / Time Penicillins AdvReac Severe Swelling Verified 07/13/23 12:37 of Lip/Tongue/Throat aspirin AdvReac Mild Other Verified 07/13/23 12:37 Review of Systems Review of Systems: CONSTITUTIONAL: Denies fever, chills, or sweats. EYES: Denies visual changes, redness, or discharge. ENT: Denies rhinorrhea, congestion, Positive sore throat, denies otalgia. CARDIOVASCULAR: Denies chest pain, palpitations, or edema. RESPIRATORY: Denies cough or dyspnea. GASTROINTESTINAL: Denies abdominal pain, nausea, vomiting, or diarrhea. GENITOURINARY: Denies dysuria or hematuria. SKIN: Denies rash or itching. MUSCULOSKELETAL: Denies back pain, joint pain, or myalgia. NEUROLOGIC: positive headache, numbness, or weakness. PSYCHIATRIC: Denies anxiety or depression. [facility] Past Medical History Medical History (Updated 07/13/23 @ 12:57 by HAILEY Marcelo) Asthma Endometriosis Hyperlipidemia Uterine prolapse Surgical History Surgical History (Updated 07/13/23 @ 12:57 by HAILEY Marcelo) H/O hernia repair H/O: hysterectomy History of cholecystectomy Family History Family History Father Hypertension Mother Hypertension Family history of autoimmune disorder Other Family history of allergic disorder Social History Social History Smoking status: Never smoker Second hand tobacco smoke exposure: No Alcohol intake: current Alcohol use details: very rarely Substance use: never Substance use type: does not use Living arrangements: with family Spiritual care concerns: No Comments At the time of my signature I agree with nursing past medical history, surgical, social, and family history. There is no relevant family history pertinent to the presenting complaint. Exam Narrative: GENERAL: Well-appearing, well-nourished, and in no acute distress. HEAD: Normocephalic, atraumatic. EYES: PERRLA and EOMI. ENT: Nares clear, no rhinorrhea or epistaxis. Mucous membranes moist. posterior pharynx with erythema no tonsillar enlargement, no exudates or lesions present. Bilateral TMs are clear no erythema or foreign bodies the canal. NECK: Supple. No lymphadenopathy CHEST: Clear to auscultation. No respiratory distress. HEART: Regular rate and rhythm. No murmur heard. Normal peripheral pulses. ABDOMEN: Soft, nontender, nondistended, normal active bowel sounds. EXTREMITIES: Normal range of motion. No edema. SKIN: Warm, dry, no rash. NEURO: No focal deficits. Alert and oriented x3. Course Course Level of Care: Express Care Visit Vital Signs Vital signs: Vital Signs Temperature 36.6 C 07/13/23 12:31 Pulse Rate 77 07/13/23 12:31 Respiratory Rate 16 07/13/23 12:31 Blood Pressure 108/72 07/13/23 12:31 Pulse Oximetry
[2023-07-13 12:31] VITALS: BP 108/72; PULSE 77; RESP 16; TEMP 36.6; O2SAT 100
== END 2023-07-13 12:57 | disposition home or self-care (01) ==
PROVIDERS: Emergency Provider Nurse Practitioner Family
DX: J02.0 Streptococcal pharyngitis (principal); J45.909 Unspecified asthma, uncomplicated; N80.9 Endometriosis, unspecified; E78.5 Hyperlipidemia, unspecified
CPT/HCPCS: 87880; 99213; G0463

== ENCOUNTER 2023-11-16 10:47 | Emergency (ER) | payer OTHER, SELFPAY ==
--- NOTE | 2023-11-16 11:00 | ED.URI ---
HPI - URI/Sore Throat General Chief Complaint: Upper Respiratory Infection Stated Complaint: sore throat,ear pain,headache,cough Time Seen by Provider: 11/16/23 11:00 Source: patient Mode of arrival: ambulatory Limitations: no limitations History of Present Illness HPI Narrative: Lonnie is a 33-year-old female patient presenting to the clinic today with complaints of sore throat, ear pain, headache, and cough x3 days. She reports no known fever but has had some body aches and chills. Denies any chest pain or shortness of breath MD elicited complaint: cough, sore throat and nasal congestion Related Data Home Medications Medication Instructions Recorded Confirmed albuterol 90 mcg/actuation aerosol 90 mcg inhalation PRN PRN 11/16/23 11/16/23 inhaler Shortness Of Breath Or Wheezing Allergies Allergy/AdvReac Type Severity Reaction Status Date / Time Penicillins Allergy Severe Swelling Verified 11/16/23 10:58 of Lip/Tongue/Throat aspirin AdvReac Mild Other Verified 11/16/23 10:58 Review of Systems Review of Systems: Pertinent positives per HPI. Patient denies any fever, chills, rash, visual changes, dizziness, shortness of breath, chest pain, palpitations, nausea, vomiting, diarrhea, constipation, abdominal pain, or any urinary issues. [facility] Past Medical History Medical History Asthma Endometriosis Hyperlipidemia Uterine prolapse Surgical History Surgical History H/O hernia repair H/O: hysterectomy History of cholecystectomy Family History Family History Father Hypertension Mother Hypertension Family history of autoimmune disorder Other Family history of allergic disorder Social History Social History Smoking status: Never smoker Second hand tobacco smoke exposure: No Alcohol intake: current Alcohol use details: very rarely Substance use: never Substance use type: does not use Living arrangements: with family Spiritual care concerns: No Comments At the time of my signature, I reviewed and agree with the nursing past medical, surgical, social, and family history. There is no relevant family history pertinent to the patient complaint. Exam Narrative: General: Well-developed, well nourished, in no apparent distress Head: Normocephalic, atraumatic Eyes: Pupils equally round and reactive to light bilaterally, EOM intact, sclera and conjunctive clear, no discharge, lids normal Ears: TMs intact and congested, ear canals clear, no drainage, grossly hearing normal. Nose: Nares patent, clear discharge, mild inflammation, no sinus tenderness. Mouth: Oral pharynx without lesions or masses, good dentition, MMM. Postnasal drip Neck: Supple, trachea midline, no enlargement of anterior or posterior cervical nodes, no thyroid masses or goiter palpable. Cardio: Regular rate and rhythm, s1 and s2 normal, no murmur appreciated. Resp: Clear to auscultation bilaterally, no rhonchi, rales, wheezing or rubs Course Course Emergency Course: Portions of this record may have been created with voice recognition software. Level of Care: Express Care Visit Vital Signs Vital signs: Vital signs reviewed MDM - URI/Sore Throat MDM Narrative Medical decision making narrative: At the time of visit patient is resting comfortably on the exam table. Patient appears to be nontoxic. Labs: COVID testing was positive. Influenza and strep test were negative. Plan: COVID testing was positive. Work note was given. Supportive measures were discussed with the patient and they voiced understanding discharge instructions and agrees to treatment plan. Return precautions reviewed Differential Diagnosis Differential diagnosis: Likely upper respiratory i
[2023-11-16 11:05] VITALS: BP 114/69; PULSE 96; RESP 16; TEMP 36.6; O2SAT 100
== END 2023-11-16 11:43 | disposition home or self-care (01) ==
PROVIDERS: Emergency Provider Nurse Practitioner Family
DX: U07.1 COVID-19 (principal); J45.909 Unspecified asthma, uncomplicated; N80.9 Endometriosis, unspecified; E78.5 Hyperlipidemia, unspecified
CPT/HCPCS: 87081; 87426; 87804; 87880; 99213; G0463

== ENCOUNTER 2024-06-26 10:03 | Outpatient (CLI) | payer OTHER, SELFPAY ==
--- NOTE | ~2024-06-26 | MM_ITS ---
EXAMINATION: MM screening wei BI w ekta HISTORY: Screening mammogram, family history of breast cancer in her mother. TECHNIQUE: Craniocaudal and mediolateral oblique 3-D tomosynthesis images were obtained and synthetic 2-D images were generated. CAD analysis was submitted and interpreted. COMPARISON: 12/09/2022 BREAST PARENCHYMAL COMPOSITION:Dense: The breasts are heterogeneously dense, which may obscure small masses. FINDINGS: Benign lymph node noted at the upper, outer left breast. No suspicious mass, calcification, or architectural distortion are identified in either breast to suggest malignancy. There has been no suspicious interval change. IMPRESSION: No mammographic evidence of malignancy. Recommend routine screening mammography in one year. BI-RADS Category 2: Benign finding(s). Reviewed, dictated and finalized at location .
== END 2024-06-26 10:04 | disposition home or self-care (01) ==
LOC: ANHIMG 10:05
PROVIDERS: PCP Physician Assistant; Visit Provider Obstetrics & Gynecology
DX: Z12.31 Encounter for screening mammogram for malignant neoplasm of breast (principal)
CPT/HCPCS: 77063; 77067